=== PATIENT | female | born 1960 | race Caucasian/White ===

== ENCOUNTER 2019-06-12 01:52 | Day surgery (SDC) | payer OTHER, SELFPAY ==
[2019-06-08 10:10] VITALS: BMI 27.3
--- NOTE | 2019-06-10 09:13 | PM.IMHP ---
H&P: HPI History of Present Illness Chief complaint: Post Mennopausal bleeding, recurring uter juanito,enla Narrative: Luz Pires is a 58 year old female 2 para 2 was admitted for robotic total vaginal hysterectomy and bilateral salpingo-oophorectomy. She has a history of uterine polyps. She has had vaginal bleeding. This has been proven to be of a benign nature. In light of her continued bleeding at her age she asked for hysterectomy. Risks and benefits were reviewed Review of Systems Review of Systems: All systems reviewed & are unremarkable except as noted in HPI and below PMFSH Family History Family History Mother Diabetes mellitus Hypertension Family history of elevated blood lipids Father Depression Hypertension Family history of cardiovascular disease Other Family history of multiple sclerosis Social History Social History Smoking status: Former smoker Smoking end date: 03/04/15 Alcohol intake: current Meds Home Medications and Allergies Home Medications Medication Instructions Recorded Confirmed Type estradiol-norethindrone acet 1 1 tablet PO DAILY #90 tablet 01/21/19 06/08/19 Rx mg-0.5 mg tablet triamterene 37.5 1 tablet PO QAM #90 tablet 02/18/19 06/08/19 Rx mg-hydrochlorothiazide 25 mg tablet baclofen 10 mg tablet 10 mg PO BID tablet 03/27/19 06/08/19 History clonazepam 0.5 mg tablet 0.5 mg PO DAILY PRN 03/27/19 06/08/19 History fingolimod 0.5 mg capsule 0.5 mg PO DAILY 03/27/19 06/08/19 History lisinopril 20 mg tablet 20 mg PO DAILY 03/27/19 06/08/19 History cholecalciferol (vitamin D3) 50 mcg PO DAILY 06/08/19 06/08/19 History [Vitamin D3] Allergies Allergy/AdvReac Type Severity Reaction Status Date / Time telmisartan Allergy Unknown Skin Verified 06/08/19 10:12 Reaction Exam Const: General: no acute distress Eyes: General: appearance normal, both eyes and all related structures Neck: Neck: supple and no JVD Thyroid: thyroid normal Resp: Effort & Inspection: normal respiratory effort Auscultation: clear to auscultation bilaterally Cardio: Rate: regular rate Rhythm: regular rhythm GI: Inspection: non-distended GI Palp: Yes Soft to palpation, No Tenderness to palpation present (GI) and No Guarding due to palpation present (GI) Auscultation: normal bowel sounds : General: Yes bladder normal to palpation External Female Exam: normal external appearance Speculum Exam - Vagina: normal vaginal discharge and No vaginal bleeding Speculum Exam - Cervix: nontender Bimanual exam- vagina & uterus: bladder normal to palpation and No Cervical tenderness present OB/external & speculum: No vaginal bleeding Skin: General skin exam: no rashes or lesions noted Extrem: General: normal to inspection and no edema Psych: Mental Status: mental status grossly normal Affect: normal affect Assessment and Plan Additional Plan impression: Postmenopausal bleeding enlarged uterus and polyps Plan: Robotic total vaginal hysterectomy and bilateral salpingo-oophorectomy
--- NOTE | 2019-06-11 15:54 | P.PNAN_ITS ---
Anes - Initial Pre Proc Eval Procedure: Operation Date: 06/12/19 09:30 Proposed Procedures p Robotic Assisted Total Vaginal Hysterectomy with Bilateral Salpingo- Oophorectomy - Clark Pretty MD Date/Time: 06/11/19 15:54 Surgeon: Clark Pretty MD Pre Op Diagnosis: Post Menopausal bleeding, recurring uter juanito,enla Patient Data Age: 58 Gender: F Height: 1.7 m Weight: 79.38 kg Allergies Allergy/AdvReac Type Severity Reaction Status Date / Time telmisartan Allergy Unknown Skin Verified 06/12/19 08:32 Reaction Home Medications Medication Instructions Recorded Confirmed Type estradiol-norethindrone acet 1 1 tablet PO DAILY #90 tablet 01/21/19 06/12/19 Rx mg-0.5 mg tablet triamterene 37.5 1 tablet PO QAM #90 tablet 02/18/19 06/12/19 Rx mg-hydrochlorothiazide 25 mg tablet baclofen 10 mg tablet 10 mg PO BID tablet 03/27/19 06/12/19 History clonazepam 0.5 mg tablet 0.5 mg PO DAILY PRN 03/27/19 06/12/19 History fingolimod 0.5 mg capsule 0.5 mg PO DAILY 03/27/19 06/12/19 History cholecalciferol (vitamin D3) 50 mcg PO DAILY 06/08/19 06/12/19 History [Vitamin D3] hydrocodone-acetaminophen [[place]] 1 tablet PO Q4H PRN #30 tablet 06/12/19 Rx amlodipine 5 mg tablet 5 mg PO DAILY #90 tablet 06/18/19 Rx Patient hx anesthesia problems: none Family hx anesthesia problems: none PMFSH Past Medical History Medical History (Updated 06/11/19 @ 15:55 by Jaylen Garcia MD) Back pain Dupuytren's fibromatosis Essential (primary) hypertension Multiple sclerosis Scoliosis Surgical History Surgical History (Updated 06/18/19 @ 08:58 by Radha Ramirez CMA) History of hysterectomy (06/12/19) Family History Family History Mother Diabetes mellitus Hypertension Family history of elevated blood lipids Father Depression Hypertension Family history of cardiovascular disease Other Family history of multiple sclerosis Social History Social History Smoking status: Former smoker Smoking end date: 03/04/15 Alcohol intake: current Anes - Eval Final PreProcedure Day of Procedure 06/11/19 15:54 Patient weight: overweight Heart: regular rate and rhythm Lungs: clear to auscultation and normal air movement Airway: Mallampati scale class II Neurological: alert and oriented Last oral intake: >/= 8 hours ASA classification: III Emergent: no Anesthetic plan: proceed Anesthesia type and monitoring: general ETT Informed Consent: The patient's anesthetic plan and its attendant risks and benefits were discussed with the patient/family/POA. Questions were solicited and answers provided to the satisfaction of the patient/family/POA.
[2019-06-12] VITALS (13 sets, daily range): BP systolic 118–142; BP diastolic 54–77; PULSE 53–71; RESP 12–18; TEMP 36.4–37.6; O2SAT 94–100
--- NOTE | 2019-06-12 06:44 | WPDHPUPDATE1 ---
History and Physical Update Update Date/Time: 06/12/19 06:44 History and Physical has been reviewed, including an updated exam of the patient. There are NO changes in the patient's condition. Risks, benefits, and alternatives have been discussed and questions answered. Patient agrees to proceed with procedure.
[2019-06-12 08:29] LABS: Basophils Percent Auto 0.3 % (0.2-1.2); Eosinophils Absolute Auto 0.1 K/mm3 (0-0.3); Eosinophils Percent Auto 2.1 % (0-4.4); Hematocrit 40.3 % (37.0-47.0); Hemoglobin 13.5 g/dL (12.0-15.0); Immature Granulocyte Absolute 0.01 K/mm3 (0.00-0.031); Immature Granulocyte Percent A 0.3 % (0-0.5); Lymphocytes Absolute Auto 0.31 K/mm3 (0.9-3.2); Lymphocytes Percent Auto 8.2 % (18.3-44.2); Mean Corpuscular HGB Conc 33.5 g/dl (32-36); Mean Corpuscular Hemoglobin 31.3 pg (26-34); Mean Corpuscular Volume 93.3 fl (80-100); Mean Platelet Volume 10.1 fl (7.4-10.4); Monocytes Absolute Auto 0.4 K/mm3 (0.1-0.6); Monocytes Percent Auto 11.3 % (2.6-8.5); Neutrophils Percent Auto 77.8 % (45.5-73.1); Platelet Count Result 293 k/mm3 (150-375); Red Blood Count 4.32 M/mm3 (4.2-5.4); Red Cell Distribution Width 13.2 % (11.5-14.5); White Blood Count 3.8 K/mm3 (4.5-10.0)
[2019-06-12] MEDS: LACTATED RINGERS 1,000 ML 30 ML IV CONT (08:40)
[2019-06-12] MEDS: ceFAZolin 2 GM/D5W 50 ML 2 GM/50 ML BAG IVPB (09:25)
--- NOTE | 2019-06-12 10:20 | SUR.OPER ---
Ebl=25ml
[2019-06-12] MEDS: KETOROLAC 30 MG/ML VIAL (*BKC) IV PUSH ×2 (10:28→12:53)
--- NOTE | 2019-06-12 10:29 | P.OP_ITS ---
Procedure Note - Detailed Date of procedure: 06/12/19 Pre-op diagnosis: Post Menopausal bleeding, recurring uter juanito,enla Surgeon: Clark Pretty MD Postop diagnosis: Postmenopausal bleeding/recurring uterine polyps Procedure: Robotic total vaginal hysterectomy and bilateral salpingo- oophorectomy EBL: 25cc Findings: Mildly enlarged uterus normal-appearing ovaries and tubes Complications: None Description of procedure: The patient was prepped and draped in the normal sterile fashion and placed in the dorsal lithotomy position. Under excellent general endotracheal anesthesia weighted speculum was placed in the posterior fornix of vagina. Anterior lip of the cervix grasped with a single-tooth te naculum. Uterus sounded to 9cm. Serial dilatation with fragmented dilators performed followed by passage of the 8. TIFFANY and the 3. And half cold cup. Next a 16 [place] catheter was placed in the bladder. The remaining instruments were removed. The gloves were changed. A supraumbilical incision was made and the Veress needle passed in the abdomen. Abdomen filled with CO2 gas [id number]. The 8mm trocar advanced in the abdomen. Downside visualized. No injury seen. The patient was placed in Trendelenburg and right and left lateral quadrant incisions made. The 8mm trocars were advanced under direct visualization assuring no injury. A right upper quadrant incision made and the 10mm trocar advanced into the abdomen under direct visualization again ensuring injury. The robot was docked. The left round ligament was grasped, burned, cut and brought across the above the bladder which was reflected caudally to the opposite round ligament which was clamped, burned, cut. Adhesions were noted from the colon to the lateral sidewall and these were sharply dissected being careful to avoid injury to vital structures. The left infundibulopelvic structure was skeletonized to remove the left ovary and tube. This was clamped, cut, burned and brought to the level of the cut round ligament. In like fashion the right infundibulopelvic structure was skeletonized, clamped, burned, cut and brought to the level of the previously cut round ligament. The left in cardinal and broad ligaments were serially skeletonized clamped, burned, cut and brought down the lateral edge of the uterus and cervix until the uterine vessels could be seen these were individually clamped, burned, cut. In like fashion the cardinal and broad ligaments on the right were serially skeletonized. These were clamped, burned, cut and brought down to the level of the uterine vessels on the right these were individually clamped, burned, cut. At that point excellent blanching of the uterus was seen colpotomy incision was then made. The uterus cervix ovaries and tubes removed through the vagina. The vagina was then closed with continuous running 0V lock from lateral edge to lateral edge and back to the midline. Irrigation undertaken until clear. Blood loss estimated 25cc. All areas appeared hemostatic. The robot was undocked. The gas removed from the abdomen. The trocars removed from the abdomen. The incisions were closed with 4 O Monocryl and glue. The patient was awakened. She went to recovery in satisfactory condition. All sponge, needle, instrument counts were correct. There were no immediate complications
--- NOTE | 2019-06-12 11:22 | SUR.PHASEI ---
1122 - family updated on pt's status
--- NOTE | 2019-06-12 12:42 | PC.NURSE ---
1155-This patient, Luz Pires, was admitted to OB 2nd Floor Room 284-00. Patient/family oriented to hospital policies and general routines including ID bracelet, bed and alarms, visiting hours, pain management, procedures, bathroom and other care routines, personal items, smoking policy, room service/diet, and visiting hours. Valuables list has been completed. Information on how to activate the Rapid Response Team has been discussed. Patient/Family are encouraged to report perceived risks to care and to ask questions if they do not understand what they are told or what they should do.
[2019-06-12] MEDS: DEXTROSE 5%/LACTATED RINGERS 1,000 ML 125 ML IV CONT ×2 (12:51→20:03)
[2019-06-12] MEDS: FUROSEMIDE INJ 40 MG/4 ML VIAL 10 MG IV PUSH (16:19)
[2019-06-12] MEDS: IBUPROFEN 600 MG TABLET PO (19:20)
[2019-06-13 00:15] VITALS: BP 102/54; PULSE 57; RESP 12; TEMP 36.6
[2019-06-13] MEDS: IBUPROFEN 600 MG TABLET PO (04:58)
[2019-06-13 05:30] VITALS: BP 103/57; PULSE 59; RESP 12; TEMP 36.6
[2019-06-13 05:55] LABS: Eosinophils Percent Auto 0.1 % (0-4.4); Hematocrit 35.3 % (37.0-47.0); Hemoglobin 11.8 g/dL (12.0-15.0); Immature Granulocyte Absolute 0.05 K/mm3 (0.00-0.031); Immature Granulocyte Percent A 0.4 % (0-0.5); Lymphocytes Absolute Auto 0.22 K/mm3 (0.9-3.2); Lymphocytes Percent Auto 1.9 % (18.3-44.2); Mean Corpuscular HGB Conc 33.4 g/dl (32-36); Mean Corpuscular Hemoglobin 31.1 pg (26-34); Mean Corpuscular Volume 92.9 fl (80-100); Mean Platelet Volume 10.4 fl (7.4-10.4); Monocytes Absolute Auto 0.7 K/mm3 (0.1-0.6); Monocytes Percent Auto 5.9 % (2.6-8.5); Neutrophils Absolute Auto 10.6 K/mm3 (1.3-6.7); Neutrophils Percent Auto 91.7 % (45.5-73.1); Platelet Count Result 276 k/mm3 (150-375); Red Cell Distribution Width 13.1 % (11.5-14.5); White Blood Count 11.6 K/mm3 (4.5-10.0)
[2019-06-13 06:45] VITALS: BP 127/71; PULSE 72; RESP 18; TEMP 36.2
[2019-06-13] MEDS: ENOXAPARIN 40 MG/0.4 ML SYRINGE SUB-Q (08:53)
[2019-06-13] MEDS: DOCUSATE SODIUM 100 MG CAPSULE PO (08:53)
--- NOTE | 2019-06-13 08:59 | PM.GYNPNOP ---
PROCESS LEAD - A/P Postoperative Procedures: Procedures Operation Date: 06/12/19 09:30 Actual Procedures Side Surgeon p Robotic Assisted Total Vaginal Hysterectomy with Bilateral Salpingo-Oophorectomy Bilateral Clark Pretty MD A: POD#1, doing well. P: Home to f/u 2 weeks. Time Spent With Patient Time with patient: less than 15 minutes PROCESS LEAD- PN:Subj Post-Op Subjective Date/time seen: 06/13/19 08:59 Interval history: Pain OK. Tolerating diet. Voiding. Would like to go home. Exam Narrative: Exam Narrative: AVSS I/O OK ABD soft, nontender. Incisions c/d/i. EXT nontender PROCESS LEAD - PN: Obj Data Vital Signs Vital Signs: Vital Signs - 24 hr 06/12/19 10:45 06/12/19 11:00 06/12/19 11:15 Temperature 36.4 C Pulse Rate 66 60 60 Respiratory Rate 14 14 15 Blood Pressure 121/64 125/74 125/68 Pulse Oximetry 98 100 96 06/12/19 11:30 06/12/19 11:45 06/12/19 12:00 Temperature 36.5 C Pulse Rate 55 L 56 L 53 L Respiratory Rate 12 12 16 Blood Pressure 125/63 118/56 L 134/64 Pulse Oximetry 94 95 100 06/12/19 12:15 06/12/19 12:30 06/12/19 13:00 Temperature Pulse Rate 55 L 60 60 Respiratory Rate 16 16 16 Blood Pressure 137/70 134/66 138/54 L Pulse Oximetry 95 99 100 06/12/19 13:30 06/12/19 14:00 06/12/19 15:00 Temperature 37.6 C Pulse Rate 64 65 70 Respiratory Rate 18 16 16 Blood Pressure 122/58 L 134/66 128/60 Pulse Oximetry 98 98 100 06/12/19 19:43 06/13/19 00:15 06/13/19 05:30 Temperature 36.7 C 36.6 C 36.6 C Pulse Rate 71 57 L 59 L Respiratory Rate 12 12 12 Blood Pressure 142/77 H 102/54 L 103/57 L Pulse Oximetry 06/13/19 06:45 Temperature 36.2 C L Pulse Rate 72 Respiratory Rate 18 Blood Pressure 127/71 Pulse Oximetry Intake/Output Intake/Output: Intake & Output 06/10/19 06/11/19 06/12/19 04/11/20 23:59 23:59 23:59 23:59 Intake Total 2666 1600 Output Total 535 1525 Balance 2131 75 Meds/Results Medications: Active Medications Generic Name Dose Route Start Last Admin Trade Name Freq PRN Reason Stop Dose Admin Hydrocodone Bitart/Acetaminophen 1 tab 06/12/19 11:47 06/12/19 19:19 [place] 5-325 Mg PO 1 tab Q3H PRN Administration Pain Rated 5 or Less Hydrocodone Bitart/Acetaminophen 1 tab 06/12/19 11:47 06/13/19 04:57 [place] 10-325 Mg PO 1 tab Q3H PRN Administration Pain Rated 6 or Greater Docusate Sodium 100 mg 06/12/19 17:00 06/13/19 08:53 Colace Capsule PO 100 mg BID MAMI Administration Enoxaparin Sodium 40 mg 06/13/19 09:00 06/13/19 08:53 Lovenox SUB-Q 40 mg DAILY MAMI Administration Dextrose/Lactated Ringer's 1,000 mls @ 125 mls/hr 06/12/19 11:47 06/12/19 20:17 Dextrose 5%/Lactated Ringers IV CONT 125 mls/hr .Q8H MAMI Infusion Ibuprofen 600 mg 06/12/19 11:47 06/13/19 04:58 Motrin PO 600 mg Q6H PRN Administration Cramping Ketorolac Tromethamine 30 mg 06/12/19 11:47 06/12/19 12:53 Toradol Inj IV PUSH 06/17/19 11:48 30 mg Q6H PRN Administration Pain Rated 4-6 Morphine Sulfate 4 mg 06/12/19 11:47 Morphine Sulfate Inj IV PUSH Q4H PRN Severe breakthrough pain Naloxone HCl 0.1 mg 06/12/19 11:47 Narcan IV PUSH Q2M PRN Respiratory rate less than 10 Ondansetron HCl 4 mg 06/12/19 11:47 Zofran Inj IV PUSH Q6H PRN Nausea And Vomiting Simethicone 80 mg 06/12/19 11:47 Mylicon PO Q2H PRN Gas Labs CBC & Chem 7: 06/13/19 04:39 Labs: Laboratory Results - last 24 hr 06/12/19 06/13/19 08:05 04:39 WBC 11.6 H RBC 3.80 L Hgb 11.8 L Hct 35.3 L MCV 92.9 MCH 31.1 MCHC 33.4 RDW 13.1 Plt Count 276 MPV 10.4 Immature Gran % (Auto) 0.4 Neut % (Auto) 91.7 H Lymph % (Auto) 1.9 L [place] % (Auto) 5.9 Eos % (Auto) 0.1 Baso % (Auto) 0.0 L Lymph # (Auto) 0.22 L [place] # (Auto) 0.7 H Eos # (Auto) 0.0 Baso # (Auto) 0.0 Abs Immat Gran (auto) 0.05
--- NOTE | 2019-06-13 09:00 | PM.DS ---
DS: Diagnosis Discharge Diagnosis (1) Vaginal bleeding: Code(s): N93.9 - Abnormal uterine and vaginal bleeding, unspecified Status: Acute (2) Cervical polyp: Code(s): N84.1 - Polyp of cervix uteri Status: Acute DS: Summary Time Spent with Patient Time attestation: Total time spent providing and/or coordinating discharge services: DS: Data Data Completed and Pending Pending studies at discharge: Pending at discharge 06/12/19 10:17 Surgical [PTH] Routine Labs on day of discharge: Labs from last 24 hours 06/13/19 06/12/19 04:39 08:05 WBC 11.6 H RBC 3.80 L Hgb 11.8 L Hct 35.3 L MCV 92.9 MCH 31.1 MCHC 33.4 RDW 13.1 Plt Count 276 MPV 10.4 Immature Gran % (Auto) 0.4 Neut % (Auto) 91.7 H Lymph % (Auto) 1.9 L [place] % (Auto) 5.9 Eos % (Auto) 0.1 Baso % (Auto) 0.0 L Lymph # (Auto) 0.22 L [place] # (Auto) 0.7 H Eos # (Auto) 0.0 Baso # (Auto) 0.0 Abs Immat Gran (auto) 0.05 H Absolute Neuts (auto) 10.6 H Absolute Nucleated RBC 0.0 Nucleated RBC % 0.0 Blood Type O Positive Antibody Screen Negative Discharge Plan Discharge Patient Disposition: Home, Self-Care Discharge Instructions: Call or return if temperature above 100.4? F, increased abdominal pain, increased vaginal bleeding or any new problems. Stand Alone Forms: General Discharge Instructions Follow-up/Referrals: Clark Pretty MD [Physician] - Discharge Medications: New hydrocodone-acetaminophen [[place]] 5-325 mg tablet 1 tablet PO Q4H PRN (Reason: pain) Qty: 30 RF: 0 No Action lisinopril 20 mg tablet 20 mg PO DAILY RF: 0 [place] 0.5 mg capsule 0.5 mg PO DAILY RF: 0 clonazepam 0.5 mg tablet 0.5 mg PO DAILY PRN (Reason: Anxiety) RF: 0 baclofen 10 mg tablet 10 mg PO BID RF: 0 cholecalciferol (vitamin D3) [Vitamin D3] 50 mcg (2,000 unit) Capsule 50 mcg PO DAILY RF: 0 estradiol-norethindrone acet [[place]] 1-0.5 mg tablet 1 tablet PO DAILY Qty: 90 RF: 3 triamterene-hydrochlorothiazid 37.5-25 mg tablet 1 tablet PO QAM Qty: 90 RF: 1 Primary Care Provider: Russel Alves Attending physician on admission: Clark Pretty
== END 2019-06-13 10:46 | disposition home or self-care (01) ==
LOC: ANHSURGERY 08:08 → ANHOB2 11:49
PROVIDERS: PCP Family Medicine; Visit Provider Obstetrics & Gynecology
PROC: (CPT 58552; principal; 2019-06-12 09:30)
DX: N95.0 Postmenopausal bleeding (principal); N84.0 Polyp of corpus uteri; N80.0 Endometriosis of uterus; N73.6 Female pelvic peritoneal adhesions (postinfective); I10 Essential (primary) hypertension; G35 Multiple sclerosis; Z87.891 Personal history of nicotine dependence
CPT/HCPCS: 58552; S2900; 36415; 85025; 86850; 86900; 86901; 88307; 99199; A9270; J0690; J1650; J1885; J1940; J2250; J3010; J7120; J7121

== ENCOUNTER 2020-11-30 14:47 | Outpatient (CLI) | payer OTHER, SELFPAY ==
--- NOTE | ~2020-11-30 | MM_ITS ---
EXAMINATION: MM screening hernán BI w vinay HISTORY: Screening TECHNIQUE: Craniocaudal and mediolateral oblique 3-D tomosynthesis images were obtained and synthetic 2-D images were generated. CAD analysis was submitted and interpreted. COMPARISON: No prior mammogram is available for comparison at this institution. BREAST PARENCHYMAL COMPOSITION: The breasts are heterogeneously dense, which may obscure small masses . FINDINGS: There is focal asymmetry in the upper outer quadrant of the right breast, middle third. The re are no suspicious masses, calcifications or architectural distortion in the left breast to suggest malignancy. IMPRESSION: 1. Focal right breast asymmetry. 2. Additional mammographic views and possible breast ultrasound are recommended. BI-RADS Category 0: Incomplete: Needs additional imaging evaluation. Reviewed, dictated and finalized at location A. IMPRESSION: 1. Focal right breast asymmetry. 2. Additional mammographic views and possible breast ultrasound are recommended . BI-RADS Category 0: Incomplete: Needs additional imaging evaluation.
--- NOTE | ~2020-11-30 | DEXA_ITS ---
Bone Density Report Name: Luz Pires Age: 59 Sex: Female Ethnicity: White Date of : 1960 Indication: postmenopausal; height loss; hysterectomy; Referring Provider: ANOOP DOOLEY Study: Bone densitometry was performed. Exam Date: November 30, 2020 Accession number: [id number] Bone Density: Region BMD T-score Z-score Classification AP Spine (L1-L4) 1.000 -0.4 1.0 Normal Femoral Neck (Left) 0.871 0.2 1.5 Normal Total Hip (Left) 0.958 0.1 1.1 Normal Total Hip Bilateral Avg 0.927 -0.2 0.9 Normal Femoral Neck (Right) 0.808 -0.4 0.9 Normal Total Hip (Right) 0.895 -0.4 0.6 Normal World Health Organization criteria for BMD impression classify patients as: Normal (T-score at or above -1.0), Osteopenia (T-score between -1.0 and -2.5), or Osteoporosis (T-score at or below -2.5). 10-year Fracture Risk: FRAX not reported because: All T-scores for Spine Total, Hip Total, Femoral Neck at or above -1.0 Clinical Information Provided by Patient: Has used the following medications: Vitamin D Has the following medical conditions: Hysterectomy Patient maximum height was 67 Menopause Age: 53 No regular weight bearing exercise Drinks caffeinated beverages Onset of menses at age 15 Number of children 2 Impression: The patient has normal bone mass. Discussion: BONE DENSITY IS ABOVE THE MINIMUM DESIRABLE LEVEL AT ALL SKELETAL SITES TESTED. This patient?s bone mineral density is above the minimum desirable level (T-score -1.0 or better) at all sites measured. The patient should follow a healthful lifestyle (good nutrition with adequate calcium and vitamin D, and appropriate weight-bearing exercise). Follow-Up: Consider repeating this study in 5 years or sooner if there is some new clinical indication. Reported by: DALE on 11/30/2020 3:28:00 PM. Reviewed, dictated and finalized at location [facility] OBANDO
== END 2020-11-30 14:48 | disposition home or self-care (01) ==
LOC: ANHIMG 14:50
PROVIDERS: PCP Family Medicine; Visit Provider Family Medicine
DX: Z12.31 Encounter for screening mammogram for malignant neoplasm of breast (principal); M85.89 Other specified disorders of bone density and structure, multiple sites; G35 Multiple sclerosis; R92.8 Other abnormal and inconclusive findings on diagnostic imaging of breast
CPT/HCPCS: 77063; 77067; 77080

== ENCOUNTER 2020-12-23 12:07 | Outpatient (CLI) | payer OTHER, SELFPAY ==
--- NOTE | ~2020-12-23 | MMUS_ITS ---
EXAMINATION: MM diagnostic hernán RT w vinay, US breast RT complete HISTORY: Focal right breast mammographic asymmetry reported on 11/30/2020 screening mammogram TECHNIQUE: Additional 3-D tomosynthesis images of the right breast were performed and synthetic 2-D i mages were generated. CAD analysis was submitted and interpreted. High resolution complete right maria ines st ultrasound including all 4 quadrants and subareolar area was performed. COMPARISON: bilateral digital screening mammogram FINDINGS: MAMMOGRAPHIC FINDINGS: In approximately 5 mm mass is suggested in the anterior outer mid left breast. ULTRASOUND: 5 mm sonolucency with through transmission posterior enhancement is identified in o'clock 2 cm from t he nipple. Approximately 5.5 x 9 mm cyst is identified at 6:00 2 cm from the nipple. No suspicious mass or shadowing is evident. IMPRESSION: 1. Probable benign findings 2. 6 month diagnostic mammogram and right breast ultrasound follow-up are recommended BI-RADS category 3, probably benign findings. Reviewed, dictated and finalized at location A. IMPRESSION: 1. Probable benign findings 2. 6 month diagnostic mammogram and right breast ultrasound follow-up are recom mended BI-RADS category 3, probably benign findings.
== END 2020-12-23 12:08 | disposition home or self-care (01) ==
LOC: ANHIMG 12:07
PROVIDERS: PCP Family Medicine; Visit Provider Family Medicine
DX: R92.8 Other abnormal and inconclusive findings on diagnostic imaging of breast (principal)
CPT/HCPCS: 76641; 77061; 77065; G0279

== ENCOUNTER 2021-10-16 14:55 | Outpatient (RCR) | payer OTHER, SELFPAY ==
--- NOTE | 2021-10-16 18:20 | PTOPEVAL ---
Thank you for referring Luz Pires to [facility].? The patient is scheduled to be seen for therapy? 2x/week for 8 visits. Please review, sign, date and return this plan of care BRITTANI. I agree with and certify that the following plan of care is medically necessary. Referring Physician Date Admitting Provider: Attending Provider: Russel Alves MD Referring Provider: *PT Outpatient Evaluation Start: 10/16/21 15:16 Freq: Status: Active Protocol: Document 10/16/21 15:16 [facility] (Rec: 10/16/21 16:13 [id number]) Therapy Assessment Status Assessment Status Assessment Status Evaluation Outpatient Past Medical History Neurological History Hx Multiple Sclerosis Yes Cardiovascular History Hx Hypertension Yes Respiratory History Hx Sleep Apnea Yes: RESOLVED Gastrointestinal History Hx Polyps Yes Genitourinary History Hx Genitourinary Disorders No Significant History Musculoskeletal History Hx Back Pain Yes Hx Orthopedic Surgery Yes: RT HAMMER TOE CORRECTION Hx Scoliosis Yes Hematological History Hx Hematological Disorders No Significant History Endocrine History Hx Endocrine Disorders No Significant History HEENT History Hx Dental Problems Yes Hx Ear Surgery Yes: OTOPLASTY Integumentary History Hx Skin Disorders No Significant History Reproductive History Hx Post Menopausal Yes Hx Tubal Ligation Yes Hx Other Reproductive Disorders Yes: RECURRENT UTERINE POLYPS Psychosocial History Hx Anxiety Yes Pain History Has Past Pain Affected Your Daily Life Yes: GENERALIZED Effective Methods of Pain Control MEDICAL MARIJUANA NEEDED Anesthesia History Hx Anesthesia Reactions No Significant History Evaluation Information Problem Diagnosis Dorsalgia Onset 10/07/21 Subjective Information Has had low back pain in the Query Text:As Reported By Patient/ past, knows it is very much Family due to decreased core strength . Has MS, diagnosed in 2013. Noticed back pain before diagnosis, hurt it when in the . Has been working from home. Also has knee pain that has been worsening, shoulder pain with frozen shoulder, and elbow pain and she is wanting physical therapy for her shoulder and elbow as well. Insidious onset of building pain i
== END 2021-10-30 15:40 | disposition home or self-care (01) ==
LOC: CHSPT 14:55
PROVIDERS: PCP Family Medicine; Visit Provider Family Medicine
DX: M54.9 Dorsalgia, unspecified (principal)
CPT/HCPCS: 97110; 97140; 97161

== ENCOUNTER 2022-01-31 01:00 | Day surgery (SDC) | payer OTHER, SELFPAY ==
[2022-01-16 09:09] VITALS: BMI 28.3
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
[2022-01-31 07:11] VITALS: BP 135/94; PULSE 95; RESP 16; TEMP 36.2; O2SAT 98
[2022-01-31] MEDS: LACTATED RINGERS 1,000 ML 150 ML IV CONT (07:16)
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
[2022-01-31] MEDS: SIMETHICONE ORAL SUSPENSION 20 MG/0.3 ML 30 ML BOTTLE 0.6 ML IRRIGATION (08:52)
[2022-01-31 09:02] VITALS: BP 120/67; PULSE 65; RESP 19; O2SAT 97
[2022-01-31 09:12] VITALS: BP 124/73; PULSE 60; RESP 19; O2SAT 99
[2022-01-31 09:22] VITALS: BP 137/77; PULSE 61; RESP 16; O2SAT 100
== END 2022-01-31 09:27 | disposition home or self-care (01) ==
PROVIDERS: PCP Family Medicine; Visit Provider Internal Medicine Gastroenterology
PROC: 0DJD8ZZ Inspection of Lower Intestinal Tract, Via Natural or Artificial Opening Endoscopic (ICD-10-PCS; CPT 45378; principal; 2022-01-31 08:30)
DX: Z12.11 Encounter for screening for malignant neoplasm of colon (principal); K64.8 Other hemorrhoids; K57.30 Diverticulosis of large intestine without perforation or abscess without bleeding; K63.5 Polyp of colon; I10 Essential (primary) hypertension; G35 Multiple sclerosis; Z87.891 Personal history of nicotine dependence
CPT/HCPCS: 45385; 88305; J2704; J7120

== ENCOUNTER 2022-02-19 11:39 | Outpatient (CLI) | payer OTHER, SELFPAY ==
--- NOTE | ~2022-02-19 | MM_ITS ---
EXAMINATION: MM screening hernán BI w vinay HISTORY: Screening TECHNIQUE: Craniocaudal and mediolateral oblique 3-D tomosynthesis images were obtained and synthetic 2-D images were generated. CAD analysis was submitted and interpreted. COMPARISON: Comparison to multiple prior studies sequentially, with oldest reviewed study dated 11/30. BREAST PARENCHYMAL COMPOSITION: The breasts are heterogeneously dense, which may obscure small masses FINDINGS: The right breast is stable without evidence for malignancy. There is a new mass in the lowe r outer quadrant of the left breast, best seen on MLO tomographic image . IMPRESSION: 1. New left breast mass, lower outer quadrant. 2. Additional mammographic views and possible breast ultrasound are recommended. BI-RADS Category 0: Incomplete: Needs additional imaging evaluation. Reviewed, dictated and finalized at location A. ISH TRANSLATOR IMPRESSION: 1. New left breast mass, lower outer quadrant. 2. Additional mammographic views and possible breast ultrasound are recommended . BI-RADS Category 0: Incomplete: Needs additional imaging evaluation.
== END 2022-02-19 11:40 | disposition home or self-care (01) ==
LOC: ANHIMG 11:40
PROVIDERS: PCP Family Medicine; Visit Provider Family Medicine
DX: Z12.31 Encounter for screening mammogram for malignant neoplasm of breast (principal); R92.8 Other abnormal and inconclusive findings on diagnostic imaging of breast
CPT/HCPCS: 77063; 77067

== ENCOUNTER 2022-03-15 12:45 | Outpatient (CLI) | payer OTHER, SELFPAY ==
--- NOTE | ~2022-03-15 | MMUS_ITS ---
EXAMINATION: MM diagnostic hernán LT w vinay, US breast LT complete HISTORY: Follow-up left breast asymmetry TECHNIQUE: Additional 3-D tomosynthesis images of the left breast were performed and synthetic 2-D im ages were generated. CAD analysis was submitted and interpreted. High resolution complete left breast ultrasound was performed. COMPARISON: Comparison to multiple prior studies sequentially, with oldest reviewed study dated 11/30. BREAST PARENCHYMAL COMPOSITION: Breast composed of scattered areas of fibroglandular density FINDINGS: MAMMOGRAPHIC FINDINGS: There are no suspicious masses, calcifications or architectural distortion in the left breast to sugg est malignancy. ULTRASOUND: Complete US of all 4 quadrants of the left breast and retroareolar region was reviewed. At 4:00, 2 cm from the nipple there is a cluster of cysts measuring up to 1.4 cm in aggregate. At 11:00 near the n ipple there is mildly prominent duct. No suspicious masses to suggest malignancy. IMPRESSION: 1. No evidence for malignancy in the left breast. Benign findings. 2. Routine yearly screening mammogram and regular clinical breast examination are recommended. BI-RADS Category 2: Benign finding(s). Reviewed, dictated and finalized at location A. HOLOGY ASSISTANT IMPRESSION: 1. No evidence for malignancy in the left breast. Benign findings. 2. Routine yearly screening mammogram and regular clinical breast examination a re recommended. BI-RADS Category 2: Benign finding(s).
== END 2022-03-15 12:46 | disposition home or self-care (01) ==
PROVIDERS: PCP Family Medicine; Visit Provider Physician Assistant
DX: R92.8 Other abnormal and inconclusive findings on diagnostic imaging of breast (principal)
CPT/HCPCS: 76641; 77061; 77065; G0279

== ENCOUNTER → 2022-09-22 10:25 | Outpatient (CLI) | payer OTHER, SELFPAY ==
--- NOTE | ~2022-09-22 | MR_ITS ---
EXAMINATION: MR shoulder LT wo con DATE: 09/22/2022 11:25 INDICATION: generalized left shoulder pain down arm ltd rom x5mos, . TECHNIQUE: Magnetic resonance imaging (MRI) of the left shoulder was performed without intravenous co ntrast. Sequences included axial PD-weighted FS FSE, coronal oblique PD-weighted FS FSE and T2-weight ed FS FSE, and sagittal oblique T2-weighted FS FSE and T1-weighted FSE. COMPARISON: None. FINDINGS: Coracoacromial arch: Mild anterior downsloping of the type II acromion. Mild acromial tip enthesopathy. 4 mm subacromial s pace. Mild subacromial subdeltoid fluid. No subcoracoid narrowing. Mild AC joint hypertrophy. Rotator cuff: No focal defect. Distal cuff thinning superiorly, with mild intermediate signal abnormality. Elongate d cystic collection adjacent to the infraspinatus muscle. Mild supraspinatus and infraspinatus atroph y. Partial subscapularis tear. Teres minor intact. Biceps tendon and glenoid labrum: Mild medial subluxation of the biceps tendon. Glenohumeral joint space narrowing. Mild degenerative c hanges in the glenoid labrum without focal tear Fluid: No significant fluid collection except as noted above. Bones/cartilage: Benign, homogenous marrow signal. Glenohumeral cartilage thinning. IMPRESSION: Mild outlet compromise, with subchondral subdeltoid bursitis. Chronic changes in the superior cuff, including tendinopathy, without focal tear in either the supras pinatus or infraspinatus. Likely ganglion cyst adjacent to the infraspinatus muscle belly. Partial subscapular tear with mild biceps tendon subluxation. Mild AC joint and glenohumeral joint osteoarthritis. Reviewed, dictated and finalized at location K. IMPRESSION: Mild outlet compromise, with subchondral subdeltoid bursitis. Chronic changes in the superior cuff, including tendinopathy, without focal tea r in either the supraspinatus or infraspinatus. Likely ganglion cyst adjacent to the infraspinatus muscle belly. Partial subscapular tear with mild biceps tendon subluxation. Mild AC joint and glenohumeral joint osteoarthritis.
== END ==
PROVIDERS: PCP Family Medicine; Visit Provider Nurse Practitioner Family
DX: M19.012 Primary osteoarthritis, left shoulder (principal)
CPT/HCPCS: 73221

== ENCOUNTER 2022-10-02 14:44 | Outpatient (RCR) | payer OTHER, SELFPAY ==
--- NOTE | 2022-10-02 16:17 | OPREHPOC ---
Outpatient Therapy Plan of Care This is a Multidisciplinary Plan of Care that may contain components documented by all disciplines (PT, OT, and ST.) PT Problem 1 PT Problem #1 Knowledge Deficit PT Goal 1 Goal Patient to demonstrate independence with HEP Target Visit 6 PT Problem 2 PT Problem #2 Pain PT Goal 1 Goal 1. Patient to report highest pain at 2/10 2. Patient to report no sleep disturbance due to pain Target Visit 12 PT Problem 3 PT Problem #3 Impaired Range of Motion PT Goal 1 Goal Patient to demonstrate 160 deg of L shoulder flexion to improve ability to reach into cabinets at PLOF Target Visit 12 PT Problem 4 PT Problem #4 Impaired Strength PT Goal 1 Goal Patient to demonstrate L shoulder strength to 4+/5 to improve ability to complete house hold tasks Target Visit 12 PT Problem 5 PT Problem #5 Impaired Functional Mobil PT Goal 1 Goal Patient to report ability to dress and bathe with no increase in L shoulder pain Target Visit 12
--- NOTE | 2022-10-02 16:17 | PTOPEVAL1 ---
Assessment and note entered by Aarti Mcnair DPT Evaluation Information Assessment Status Evaluation Diagnosis L shoulder pain Onset 09/28/22 Subjective Information Patient reported in May she was having L shoulder pain. She did exercises that she had previously done for R frozen shoulder with no improvements. She reports since onset pain has continued to increase. Patient reports difficulty with dressing, lifting over her head, and performing heavy house hold tasks. She reports prior to May she did not have any L shoulder pain. 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 Reported Pain Level Pain Score 2: Self Report Assessment PT Clinical Summary Patient is a 61 year old female who presents to PT with L shoulder pain. Patient presents decrease active and passive L shoulder ROM, decreased L shoulder strength and increased pain impairing her ability to dress, bathe, and complete house hold chores. Patient would benefit from skilled PT to address impairments and return to PLOF. Plan of Care Interventions Electrical Stimulation,Hot Pack/Cold Pack,Manual Therapy,Neuro Re-education,Patient/Caregiver Educati,Therapeutic Activities,Therapeutic Exercise PT Services Indicated Yes Treatment Frequency and 2x weekly for 12 visits Duration These treatments will address the objective and functional deficits as defined above. The patient will be advanced safely and appropriately in order for the patient to progress towards his/her prior level of function. Additional exercises will be introduced and as well as a comprehensive home exercise program upon discharge, if needed, ?to ensure carryover of functional gains achieved in the clinic. This treatment plan has been reviewed and agreement upon by the patient.
--- NOTE | 2022-11-02 10:41 | OPREHPOC ---
Outpatient Therapy Plan of Care This is a Multidisciplinary Plan of Care that may contain components documented by all disciplines (PT, OT, and ST.) PT Problem 1 PT Problem #1 Knowledge Deficit PT Goal 1 Goal Patient to demonstrate independence with HEP Target Visit 6 Progress Met Comment continue to progress exercises PT Problem 2 PT Problem #2 Pain PT Goal 1 Goal 1. Patient to report highest pain at 2/10 2. Patient to report no sleep disturbance due to pain Target Visit 12 Comment continue to address goals PT Problem 3 PT Problem #3 Impaired Range of Motion PT Goal 1 Goal Patient to demonstrate 160 deg of L shoulder flexion to improve ability to reach into cabinets at PLOF Target Visit 12 Progress Partially Met Comment continue to address PT Problem 4 PT Problem #4 Impaired Strength PT Goal 1 Goal Patient to demonstrate L shoulder strength to 4+/5 to improve ability to complete house hold tasks Target Visit 12 Progress Partially Met Comment continue to address PT Problem 5 PT Problem #5 Impaired Functional Mobil PT Goal 1 Goal Patient to report ability to dress and bathe with no increase in L shoulder pain Target Visit 12 Comment continue to address
--- NOTE | 2022-11-02 10:42 | PTOPPROGNS ---
Assessment and note entered by JT File, PT Evaluation Information Assessment Status Progress Diagnosis L shoulder pain Onset 09/28/22 Subjective Information Patient reports some pain in the L shoulder at the beginning of today's session. She reports less tenderness to the touch along the left lateral shoulder/upper arm, noting that about 85% of the discomfort remains along the insertion of the L deltoid on the upper arm. She notes that she feels her range of motion has improved since starting PT. She states that her doctor recommended she continue PT until she visits the orthopedic surgeon in late November. Assessment PT Clinical Summary Mrs. Pires has attended 10 visits of skilled PT to address L shoulder pain, making good progress towards goals. She demonstrates improved shoulder strength with some motions and increased ROM both actively and passively in all planes. Patient currently has 52.2% functional decline as assessed by the [employer]. She continues to report pain with performing motions like reaching to the back seat of the car. She continues to display limited strength, especially with abduction. Patient would benefit from skilled therapy to address remaining ROM and strength deficits along with pain. Plan of Care Interventions Electrical Stimulation,Hot Pack/Cold Pack,Manual Therapy,Neuro Re-education,Patient/Caregiver Educati,Therapeutic Activities,Therapeutic Exercise PT Services Indicated Yes Treatment Frequency and continue POC for 2x weekly for remaining 2 visits Duration per initial POC These treatments will address the objective and functional deficits as defined above. The patient will be advanced safely and appropriately in order for the patient to progress towards his/her prior level of function. Additional exercises will be introduced and as well as a comprehensive home exercise program upon discharge, if needed, ?to ensure carryover of functional gains achieved in the clinic. This treatment plan has been reviewed and agreement upon by the patient.
--- NOTE | 2022-11-16 08:26 | OPREHPOC ---
Outpatient Therapy Plan of Care This is a Multidisciplinary Plan of Care that may contain components documented by all disciplines (PT, OT, and ST.) PT Problem 1 PT Problem #1 Knowledge Deficit PT Goal 1 Goal Patient to demonstrate independence with HEP Target Visit 6 Progress Met Comment goal met PT Problem 2 PT Problem #2 Pain PT Goal 1 Goal 1. Patient to report highest pain at 2/10 2. Patient to report no sleep disturbance due to pain Target Visit 12 Progress Not Met Comment goals not met PT Problem 3 PT Problem #3 Impaired Range of Motion PT Goal 1 Goal Patient to demonstrate 160 deg of L shoulder flexion to improve ability to reach into cabinets at PLOF Target Visit 12 Progress Partially Met Comment goal met with PROM, not yet with AROM PT Problem 4 PT Problem #4 Impaired Strength PT Goal 1 Goal Patient to demonstrate L shoulder strength to 4+/5 to improve ability to complete house hold tasks Target Visit 12 Progress Partially Met Comment goal met for all motions except abduction PT Problem 5 PT Problem #5 Impaired Functional Mobil PT Goal 1 Goal Patient to report ability to dress and bathe with no increase in L shoulder pain Target Visit 12 Progress Partially Met Comment patient reports somewhat improved ability with these activities
== END 2022-11-09 09:44 | disposition home or self-care (01) ==
LOC: CHSPT 14:44
PROVIDERS: Visit Provider Nurse Practitioner Family
DX: M25.512 Pain in left shoulder (principal)
CPT/HCPCS: 97014; 97110; 97140; 97150; 97161; G0283

== ENCOUNTER 2022-12-29 07:46 | Outpatient (CLI) | payer OTHER, SELFPAY ==
--- NOTE | 2022-12-29 08:14 | ECG_ITS ---
Measurements Intervals [place] Rate: 59 P: 63 PA: 202 QRS: 40 QRSD: 103 T: 58 QT: 406 QTc: 403 Interpretive Statements SINUS BRADYCARDIA CANNOT RULE OUT INFERIOR INFARCT AGE INDETERMINATE BORDERLINE ECG NO PREVIOUS ECG AVAILABLE FOR COMPARISON Electronically Signed On 12-29-2022 14:38:45 CDT by Henrik Ashford M.D.
[2022-12-29 08:26] LABS: Anion Gap 9 mmol/L (8-16); Blood Urea Nitrogen 17 mg/dL (7-17); Calcium 9.5 mg/dL (8.4-10.2); Carbon Dioxide 25 mmol/L (22-30); Chloride 102 mmol/L (98-107); Estimated Glomerular Filt Rate > 60; Glucose 96 mg/dL (65-110); Potassium 3.4 mmol/L (3.4-5.0); Sodium 136 mmol/L (137-145)
== END 2022-12-29 07:47 | disposition home or self-care (01) ==
LOC: ANHLAB 07:48
PROVIDERS: PCP Family Medicine; Visit Provider Anesthesiology
DX: Z01.818 Encounter for other preprocedural examination (principal); R93.1 Abnormal findings on diagnostic imaging of heart and coronary circulation; I10 Essential (primary) hypertension; Z79.899 Other long term (current) drug therapy
CPT/HCPCS: 36415; 80048; 93005

== ENCOUNTER 2023-01-01 01:38 | Day surgery (SDC) | payer OTHER, SELFPAY ==
[2022-12-24 16:34] VITALS: BMI 28.1
--- NOTE | 2022-12-24 17:14 | PC.NURSE ---
Report to the Outpatient Waiting Room, entrance under the green pavilion located off [facility], at 0830 on 01-01-23. Planned Procedure Time: 1030. Time changes happen often and if your time is changed the preop area will call you the afternoon before. - You and your visitor will be asked to self-screen and do not enter if you have any COVID symptoms. - A mask is optional within the hospital at this time. Patients may have clear liquids (water, carbonated beverages, clear teas, apple juice) until 3 hours prior to surgery with a maximum of 20 ounces. 0730 - No food from midnight until time of surgery - Infants may have breast milk until 4 hours before surgery, formula 6 hours prior to surgery. - Children will be allowed to drink immediately following surgery. If applicable, please bring a bottle or sippy cup to assist with drinking. Juice, water, soda, and popsicles are readily available. For infants on formula, please bring formula the day of surgery. Pacifiers are allowed. Take the following medications with a SIP of water the morning of surgery: amlodipine DO NOT STOP ANY OF YOUR OTHER PRESCRIPTION MEDICATIONS PRIOR TO SURGERY ?EXCEPT THE FOLLOWING Medications to discontinue per physician: ibuprofen; vitamins and supplements; Date to take last dose: 12-25-22; 12-29-22 Please no make-up, nail azeri, hairspray, perfume, deodorant, or body powder the day of surgery. No jewelry (including any body piercings) or valuables the day of surgery, leave them at home. Please take a shower or bath the night before, or the morning of, surgery with an antibacterial soap. Wear comfortable, loose fitting clothing. Button-down shirt is best Children are encouraged to wear pajamas. - Jewelry must be removed prior to entering the operating room. Rings and piercings that are not removed may be cut off. - The hospital will not accept responsibility for valuables. - Please leave all valuables, including medications, at home the day of surgery. If you are going home after surgery, a licensed tilt tray driver must drive you home. - NO public transportation without another adult if you receive anesthesia. - We recommend that an adult stay with you for 24 hours following discharge. - We also recommend that you do not drive, make important decision, drink alcoholic beverages, or take any drugs that were not prescribed by your health care provider for at least 24 hours after your discharge time. For Pediatric surgeries, we recommend two adults accompany the child home. Follow any additional instructions given to you from your surgeon. If you or anyone in your household have experienced Covid symptoms in the past week, please notify your surgeon or the nurse liaison at the phone number below for possible testing. Telephone instructions given to Luz Pires and asked if any additional questions and then verbalized understanding. Patient advised to call surgeon office or pre surgery nurse liaison [phone] if any additional questions.
[2023-01-01] VITALS (9 sets, daily range): BP systolic 124–145; BP diastolic 61–89; PULSE 64–76; RESP 14–20; TEMP 36.1–36.6; O2SAT 94–98
[2023-01-01] MEDS: ACETAMINOPHEN 500 MG TABLET 1000 MG PO (09:30)
--- NOTE | 2023-01-01 09:33 | WPDHPUPDATE1 ---
History and Physical Update Update Date/Time: 01/01/23 09:33 History and Physical has been reviewed, including an updated exam of the patient. There are NO changes in the patient's condition. Risks, benefits, and alternatives have been discussed and questions answered. Patient agrees to proceed with procedure.
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
[2023-01-01] MEDS: LACTATED RINGERS 1,000 ML 30 ML IV CONT (10:00)
[2023-01-01] MEDS: KETOROLAC 15 MG/ML VIAL (*BKC) IV PUSH (10:00)
[2023-01-01] MEDS: ceFAZolin 2 GM/D5W 50 ML 2 GM/50 ML BAG IVPB (10:25)
--- NOTE | 2023-01-01 10:37 | WPDANESPNB ---
Anes - Peripheral Nerve Block Date/Time: 01/01/23 10:37 I have discussed with the patient/family/POA the placement of a peripheral nerve block for post-operative pain management, including associated risks, benefits, complications, and side effects. Alternative methods of post-operative analgesia were detailed. Questions were solicited and answers provided to the satisfaction of the patient/family/POA. Time-Out: A pre-procedural Time-Out was completed immediately before starting the procedure and confirmed: Patient Identification, Site, Procedure, Patient Position and the Availability of Requisite Equipment. Clinical Indications: Acute post-operative pain management requested by the operative surgeon. Nerve Block Insertion Note Anes-nerve block: interscalene left Patient position: other (sitting) Skin prep: chlorhexidine Needle: 22 gauge, stimulating, insulated echogenic needle. Needle length: 50 mm Technique: nerve stimulation lost at (mA) and ultrasound Technique comment: mid2mg [id number] Injectate: bupivacaine 0.5% with epi 5 mcg/ml (30ml no epi) and dexamethasone (mg) (4) Observations: tolerated well Complications: none Procedure start time:: 1013 Procedure end time:: 1020
[2023-01-01] MEDS: EPINEPHrine HCL INJ 1 MG/ML AMPUL 3 MG IRRIGATION (11:41)
--- NOTE | 2023-01-01 13:29 | P.OP_ITS ---
Procedure Note - Detailed Date of Procedure 01/01/23 Pre-op Diagnosis Partial Lt Rot Cuff Tear Post-op Diagnosis Other (1. Partial rotator cuff tear 2. Subacromial impingement ) Procedure Performed Left shoulder 1. Arthroscopic rotator cuff repair 2. Arthroscopic subacromial decompression Surgeon Martin Blanco MD Associate Dean Of [employer] Ximena Gutierrez PA-C Anesthesia General and Regional ( interscalene block) Findings Somewhat lax soft tissues in general. Capsule was highly distensible. No gross instability identified. Concern for ligamentous laxity that might be a cause of micro instability and impingement. Will emphasize the importance postoperative physical therapy. Mid grade supraspinatus partial tear identified on the articular side low-grade on the bursal side. The subscapularis appeared intact. There was some frayed tissue around the biceps button stable and pristine in appearance. The articular cartilage and labrum were healthy. Evidence for subacromial impingement on the acromion. The Regeneten rotator tissue implant was ideal for rotator cuff repair covering the supraspinatus and infraspinatus. Multiple BHARTI soft tissue anchors and peek bone anchors utilized. Decompression performed arthroscopic bur. Description of Procedure Preoperative antibiotics were given. An interscalene block was administered in the preoperative area. The patient was bought brought to the operating room. A general anesthetic was administered. The patient was carefully positioned in the beach chair position. The head and neck were carefully positioned. The non operative extremity was also carefully positioned. The shoulder was prepped and draped in the usual sterile fashion. Examination was performed. Standard posterior and anterior arthroscopic portals were established. Inflow achieved with the arthroscopic pump using saline and epinephrine. The glenohumeral joint was carefully inspected. The articular side supraspinatus tear was identified and debrided. It was estimated at 20%. Attention was turned to the subacromial space. A complete bursectomy was performed. Was subacromial impingement and some hypertrophy of bursa. Low-grade bursal sided tearing was noted fraying at the supraspinatus. The marked articular tear was palpated and felt to be soft but otherwise intact. There was a small rent in the posterior infraspinatus area bursal side as well. The rotator cuff was lightly debrided. A modest acromioplasty was performed. The Regeneten implant was inserted. Medial BHARTI anchors were utilized followed by 2 peek bone anchors laterally. Care was taken to avoid the biceps tendon anteriorly which was previously marked. The sutures were tied arthroscopically. The arthroscopic instruments were removed. The wounds were closed with 3-0 Monocryl subcuticular suture and steri strips. There were no complications. A sling was applied and the patient brought to the recovery room. Physician pharmacy innovation assistant, Ximena Gutierrez PA-C, required for surgery; including p atient positioning, draping, arthroscopic camera operation, maintaining implant position, wound closure, and dressing and sling placement. Implants Regeneten large size collagen implant. Two peek bone anchors and BHARTI soft tissue anchors. Estimated Blood Loss 10 Pathology None sent Complications No immediate complications Condition Stable Disposition PACU [facility] Billing Surgery - Charge Forward: Surgery Billing
== END 2023-01-01 14:50 | disposition home or self-care (01) ==
PROVIDERS: PCP Family Medicine; Visit Provider Orthopaedic Surgery
PROC: (CPT 29805; principal; 2023-01-01 10:30)
DX: M75.112 Incomplete rotator cuff tear or rupture of left shoulder, not specified as traumatic (principal); M75.42 Impingement syndrome of left shoulder; M75.22 Bicipital tendinitis, left shoulder; G89.18 Other acute postprocedural pain; I10 Essential (primary) hypertension; G35 Multiple sclerosis; Z87.891 Personal history of nicotine dependence; F12.90 Cannabis use, unspecified, uncomplicated
CPT/HCPCS: 29827; 29826; 64415; 36415; 80048; 93005; A4565; A9270; C1713; J0171; J0690; J1100; J1170; J1885; J2250; J2405; J2704; J3010; J7120

== ENCOUNTER 2023-01-08 15:49 | Outpatient (RCR) | payer OTHER, SELFPAY ==
[2023-01-08 15:58] VITALS: BP_SYST 116
--- NOTE | 2023-01-08 16:57 | OPREHPOC ---
Outpatient Therapy Plan of Care This is a Multidisciplinary Plan of Care that may contain components documented by all disciplines (PT, OT, and ST.) PT Problem 1 PT Problem #1 Knowledge Deficit PT Goal 1 Goal Patient to demonstrate independence with HEP Target Visit 6 PT Problem 2 PT Problem #2 Pain PT Goal 1 Goal 1. Patient to report highest pain at 2/10 2. Patient to report ability to sleep with no disturbance due to L shoulder pain Target Visit 12 PT Problem 3 PT Problem #3 Impaired Range of Motion PT Goal 1 Goal Patient to demonstrate 160 deg of L shoulder flexion to improve ability to reach into cabinets for house hold tasks Target Visit 12 PT Problem 4 PT Problem #4 Impaired Strength PT Goal 1 Goal Patient to demonstrate 5/5 L shoulder strength to return to heavy house hold tasks at PLOF Target Visit 12 PT Problem 5 PT Problem #5 Impaired Functional Mobil PT Goal 1 Goal 1. Patient to report ability to dress with no limitations 2. Patient to report ability to wash her hair with no increase in L shoulder pain Target Visit 12
--- NOTE | 2023-01-08 16:57 | PTOPEVAL1 ---
Assessment and note entered by Aarti Mcnair DPT Evaluation Information Assessment Status Evaluation Diagnosis L shoulder pain Onset 01/01/23 Subjective Information Patient reports she underwent a L RTC repair and subacromial decompression on 01/01/23. She reports she is in a sling when out of the house now for protection. She reports she has difficulty with dressing, bathing, sleeping, and performing house hold tasks. She reports she has been doing pendulums, and elbow ROM. She reports she is off of work until 01/16/23. She returns to [place] on 01/16. Reported Pain Level Pain Score 5: Self Report Assessment PT Clinical Summary Patient is a 62 year old female who presents to PT with L shoulder pain s/p L RTC repair and subacromial decompression. Patient demonstrates increased L shoulder pain, decreased L shoulder ROM and decreased L shoulder strength limiting her ability to dress, bathe, sleep and perform house hold tasks. She would benefit from skilled PT to address impairments and return to PLOF. Plan of Care Interventions Electrical Stimulation,Hot Pack/Cold Pack,Manual Therapy,Mechanical Traction,Neuro Re-education, Patient/Caregiver Educati,Therapeutic Activities, Therapeutic Exercise PT Services Indicated Yes Treatment Frequency and 3x weekly for 6 visits and then 2x weekly for 6 Duration visits These treatments will address the objective and functional deficits as defined above. The patient will be advanced safely and appropriately in order for the patient to progress towards his/her prior level of function. Additional exercises will be introduced and as well as a comprehensive home exercise program upon discharge, if needed, ?to ensure carryover of functional gains achieved in the clinic. This treatment plan has been reviewed and agreement upon by the patient.
[2023-01-31 17:16] VITALS: BP_SYST 116
--- NOTE | 2023-01-31 17:30 | PTOPPROG ---
Assessment and note entered by Aarti Mcnair DPT Evaluation Information Assessment Status Progress - Pt Not Present Diagnosis L shoulder pain Onset 01/01/23 Subjective Information Patient reports pain comes and goes. She reports she has had some increased pain since starting light strengthening. She reports she has noticed that her ROM has improved but is discouraged that she is not further along at this point. Assessment PT Clinical Summary Mrs. Pires has been seen for 10 visits of skilled PT with good progress towards goals. Patient demonstrates improved active and L shoulder ROM with improved ability to work and complete house hold tasks. She continues to lack strength and present with pain. She would benefit from continued skilled PT to address remaining impairments and return to OF. Plan of Care Interventions Electrical Stimulation,Hot Pack/Cold Pack,Manual Therapy,Mechanical Traction,Neuro Re-education, Patient/Caregiver Educati,Therapeutic Activities, Therapeutic Exercise PT Services Indicated Yes Treatment Frequency and continue with current POC Duration These treatments will address the objective and functional deficits as defined above. The patient will be advanced safely and appropriately in order for the patient to progress towards his/her prior level of function. Additional exercises will be introduced and as well as a comprehensive home exercise program upon discharge, if needed, ?to ensure carryover of functional gains achieved in the clinic. This treatment plan has been reviewed and agreement upon by the patient.
[2023-02-07 15:16] VITALS: BP_SYST 140
--- NOTE | 2023-02-07 16:17 | OPREHPOC ---
Outpatient Therapy Plan of Care This is a Multidisciplinary Plan of Care that may contain components documented by all disciplines (PT, OT, and ST.) PT Problem 1 PT Problem #1 Knowledge Deficit PT Goal 1 Goal Patient to demonstrate independence with HEP Target Visit 6 Progress Met PT Problem 2 PT Problem #2 Pain PT Goal 1 Goal 1. Patient to report highest pain at 2/10 2. Patient to report ability to sleep with no disturbance due to L shoulder pain Target Visit 22 Comment progressing PT Problem 3 PT Problem #3 Impaired Range of Motion PT Goal 1 Goal Patient to demonstrate 160 deg of L shoulder flexion to improve ability to reach into cabinets for house hold tasks Target Visit 22 Comment progressing PT Problem 4 PT Problem #4 Impaired Strength PT Goal 1 Goal Patient to demonstrate 5/5 L shoulder strength to return to heavy house hold tasks at PLOF Target Visit 22 Comment progressing PT Problem 5 PT Problem #5 Impaired Functional Mobil PT Goal 1 Goal 1. Patient to report ability to dress with no limitations 2. Patient to report ability to wash her hair with no increase in L shoulder pain Target Visit 22 Comment progressing
--- NOTE | 2023-02-07 16:18 | PTOPREEVAL ---
Assessment and note entered by Aarti Mcnair DPT Evaluation Information Assessment Status Re-evaluation Diagnosis L shoulder pain Onset 01/01/23 Subjective Information Patient reports that she continues to have pain in the shoulder. She reports pain is starting ease. She reports she is awake a few times throughout the night due to discomfort. She reports ROM is improving. RTMD on 02/13/23 Reported Pain Level Pain Score 3: Self Report Assessment PT Clinical Summary Mrs. Pires has attended 12 visits of skilled PT with good progression towards goals. She demosntrates improved PROM and AROM of the L shoulder. She continues to report pain and difficulty sleeping due to discomfort. She returns to [place] on 02/13/23. She is compliant with HEP. She will benefit from continued skilled PT to address remaining impairments and return to PLOF. Plan of Care Interventions Electrical Stimulation,Hot Pack/Cold Pack,Manual Therapy,Mechanical Traction,Neuro Re-education, Patient/Caregiver Educati,Therapeutic Activities, Therapeutic Exercise PT Services Indicated Yes Treatment Frequency and continue 2x weekly for 10 visits Duration These treatments will address the objective and functional deficits as defined above. The patient will be advanced safely and appropriately in order for the patient to progress towards his/her prior level of function. Additional exercises will be introduced and as well as a comprehensive home exercise program upon discharge, if needed, ?to ensure carryover of functional gains achieved in the clinic. This treatment plan has been reviewed and agreement upon by the patient.
[2023-03-15 15:15] VITALS: BP_SYST 160
--- NOTE | 2023-03-15 17:02 | OPREHPOC ---
Outpatient Therapy Plan of Care This is a Multidisciplinary Plan of Care that may contain components documented by all disciplines (PT, OT, and ST.) PT Problem 1 PT Problem #1 Knowledge Deficit PT Goal 1 Goal Patient to demonstrate independence with HEP Target Visit 6 Progress Met PT Problem 2 PT Problem #2 Pain PT Goal 1 Goal 1. Patient to report highest pain at 2/10 2. Patient to report ability to sleep with no disturbance due to L shoulder pain Target Visit 30 Comment progressing PT Problem 3 PT Problem #3 Impaired Range of Motion PT Goal 1 Goal Patient to demonstrate 160 deg of L shoulder flexion to improve ability to reach into cabinets for house hold tasks Target Visit 30 Comment progressing PT Problem 4 PT Problem #4 Impaired Strength PT Goal 1 Goal Patient to demonstrate 5/5 L shoulder strength to return to heavy house hold tasks at PLOF Target Visit 30 Comment progressing PT Problem 5 PT Problem #5 Impaired Functional Mobil PT Goal 1 Goal 1. Patient to report ability to dress with no limitations 2. Patient to report ability to wash her hair with no increase in L shoulder pain Target Visit 22 Progress Met
--- NOTE | 2023-03-15 17:02 | PTOPREEVAL ---
Assessment and note entered by Aarti Mcnair DPT Evaluation Information Assessment Status Re-evaluation Diagnosis L shoulder pain Onset 01/01/23 Subjective Information Patient reports she has improved. She reports she has been able to return to fixing her hair and dressing at PLOF. Patient reports she has difficulty with reaching and returning to body due to a catching sensation. She also reports difficulty with reaching behind her for house hold tasks. She is still waking up occasionally due to pain. RTMD 03/27/23 Reported Pain Level Pain Score 2: Self Report Assessment PT Clinical Summary Mrs. Pires has attended 20 visits of skilled PT with good progression towards goals. She demonstrates 155 deg of L shoulder flexion but continues to have difficulty with L shoulder abduction. She has returned to dressing and bathing at PLOF but continues to have difficulty with reaching into cabinets and folding laundry. She would benefit from continued skilled PT to address remaining impairments and return to PLOF. Plan of Care Interventions Electrical Stimulation,Hot Pack/Cold Pack,Manual Therapy,Mechanical Traction,Neuro Re-education, Patient/Caregiver Educati,Therapeutic Activities, Therapeutic Exercise PT Services Indicated Yes Treatment Frequency and continue with skilled PT 2x weekly for 8 visits Duration These treatments will address the objective and functional deficits as defined above. The patient will be advanced safely and appropriately in order for the patient to progress towards his/her prior level of function. Additional exercises will be introduced and as well as a comprehensive home exercise program upon discharge, if needed, ?to ensure carryover of functional gains achieved in the clinic. This treatment plan has been reviewed and agreement upon by the patient.
--- NOTE | 2023-03-25 12:53 | PCPTNOTE ---
Patient cancelled session today due to weather.
[2023-04-01 15:15] VITALS: BP_SYST 160
--- NOTE | 2023-04-01 15:58 | OPREHPOC ---
Outpatient Therapy Plan of Care This is a Multidisciplinary Plan of Care that may contain components documented by all disciplines (PT, OT, and ST.) PT Problem 1 PT Problem #1 Knowledge Deficit PT Goal 1 Goal Patient to demonstrate independence with HEP Target Visit 6 Progress Met PT Problem 2 PT Problem #2 Pain PT Goal 1 Goal 1. Patient to report highest pain at 2/10 2. Patient to report ability to sleep with no disturbance due to L shoulder pain Target Visit 30 Progress Met Comment progressing PT Problem 3 PT Problem #3 Impaired Range of Motion PT Goal 1 Goal Patient to demonstrate 160 deg of L shoulder flexion to improve ability to reach into cabinets for house hold tasks Target Visit 30 Progress Met Comment progressing PT Problem 4 PT Problem #4 Impaired Strength PT Goal 1 Goal Patient to demonstrate 5/5 L shoulder strength to return to heavy house hold tasks at PLOF Target Visit 30 Progress Partially Met Comment not met for abduction PT Problem 5 PT Problem #5 Impaired Functional Mobil PT Goal 1 Goal 1. Patient to report ability to dress with no limitations 2. Patient to report ability to wash her hair with no increase in L shoulder pain Target Visit 22 Progress Met
--- NOTE | 2023-04-01 15:58 | PTOPDC ---
Assessment and note entered by Aarti Mcnair DPT Evaluation Information Assessment Status Discharge Diagnosis L shoulder pain Onset 01/01/23 Subjective Information She reports she is back to doing her normal daily activity. She saw the MD who reported that her anterior pain is to be expected with the healing process and that she is right on track and is able to be discharged from PT. Reported Pain Level Pain Score 1: Self Report Assessment PT Clinical Summary Mrs. Pires was seen for 25 visits of skilled PT following L RTC repair on 01/01/23. Patient met all goals during POC besides strength but she did make great progress towards goal. She has reported ability to dress, fix her hair and complete house hold tasks at [facility]. She is independent with HEP and is appropriate for DC at this time. Plan of Care PT Services Indicated No
== END 2023-04-01 16:53 | disposition home or self-care (01) ==
LOC: CHSPT 15:49
PROVIDERS: Visit Provider Orthopaedic Surgery
DX: Z48.89 Encounter for other specified surgical aftercare (principal)
CPT/HCPCS: 97014; 97110; 97150; 97161; 97530; G0283

== ENCOUNTER 2023-04-11 06:33 | Outpatient (CLI) | payer OTHER, SELFPAY ==
--- NOTE | ~2023-04-11 | MR_ITS ---
EXAMINATION: MR thoracic spine wo/w con DATE: 04/11/2023 08:18 INDICATION: Multiple sclerosis TECHNIQUE: Magnetic resonance imaging (MRI) of the thoracic spine was performed without and with 14 m L Multihance intravenous contrast. Sagittal localizer T1-weighted FSE of the cervicothoracic spine wa s obtained. Sequences included sagittal T2-weighted FSE, sagittal T2-weighted FS FSE, sagittal T1-jeferson ghted FSE and axial T1-weighted SE. Postcontrast sequences included axial T2-weighted FSE, sagittal T 1-weighted FS FSE, and axial T1-weighted FS SE. COMPARISON: Cervical spine MR dated 07/27/2015 and 05/11/2013 FINDINGS: Alignment is normal.Vertebral body heights are normal. T1 hyperintense hemangioma at T11. Normal jemma ow signal.Mild disc height loss with disc bulges resulting in mild central canal stenosis at T12-L1.T he more cephalad this do not extend beyond the endplate margins with no other central canal stenosis. There is facet osteoarthritis resulting in mild neural foraminal stenosis bilaterally atT1-T2 and on the right at T8-T9 through T10-T11. There are T2 hyperintense lesions at T3, T5 through T6, T9 and m ore conspicuously at T7. And T3 lesion appears to been present at the time of the prior studies. Priyanka ining lesions are not included on the field of imaging of the prior studies. None of the lesions demo nstrate enhancement. The conus terminates at L1. IMPRESSION: 1. Four T2 hyperintense lesions in the thoracic spinal cord which are without expansion or enhancemen t consistent with known history of multiple sclerosis. 2. Minimal to mild thoracic spondylosis. Reviewed, dictated and finalized at location A. [employer] IMPRESSION: 1. Four T2 hyperintense lesions in the thoracic spinal cord which are without e xpansion or enhancement consistent with known history of multiple sclerosis. 2. Minimal to mild thoracic spondylosis.
--- NOTE | ~2023-04-11 | MR_ITS ---
EXAMINATION: MR brain/brain stem wo/w con DATE: 04/11/2023 08:18 INDICATION: Multiple sclerosis TECHNIQUE: Magnetic resonance imaging (MRI) of the brain and brainstem was performed without and with 15 mL Multihance intravenous contrast. Sequences included sagittal and axial T1-weighted FLAIR, axia l T1-weighted FSE, axial diffusion-weighted FS EPI, sagittal T2-weighted FLAIR, axial 3D SWAN, axial T2-weighted FLAIR Propeller, and axial T2-weighted Propeller. Postcontrast sequences included axial, coronal, and sagittal T1-weighted FSE. Apparent diffusion coefficient (ADC) maps were created. COMPARISON: 07/27/2015 FINDINGS: There are no areas of restricted diffusion to suggest acute infarction. No intracranial hemorrhage or abnormal intracranial mass lesion. There are approximately 28 total lesions of increased T2-weighted signal intensity in the brain. Of these lesions, approximately 7 are periventricular, 21 are juxtaco rtical, and 0 are infratentorial. 0 of the lesions enhance. Only one of the juxtacortical lesions in the right temporal lobe is new since the prior study. There are no intraparenchymal signal abnormalit ies seen on the other pulse sequences. The ventricles are symmetric and normal in size. There are no abnormal extra-axial fluid collections. Flow voids are seen in the cerebral arteries on the T2-weight ed sequences consistent with their expected patency. Visualized orbits and soft tissues are unremarka ble. There are no areas of abnormal enhancement on the post contrast images. IMPRESSION: 1. No significant interval change since 2015 in scattered white matter T2 signal hyperintensities wit h only one new out of 28 total lesions which are consistent with given history of multiple sclerosis. Reviewed, dictated and finalized at location A. IRATORY SCIENTIST IMPRESSION: 1. No significant interval change since 2015 in scattered white matter T2 signa l hyperintensities with only one new out of 28 total lesions which are consiste nt with given history of multiple sclerosis.
--- NOTE | ~2023-04-11 | MR_ITS ---
EXAMINATION: MR cervical spine wo/w con DATE: 04/11/2023 08:18 INDICATION: Multiple sclerosis TECHNIQUE: Magnetic resonance imaging (MRI) of the cervical spine was performed without and with 14 m L Multihance intravenous contrast. Sequences included sagittal T2-weighted FSE, sagittal T2-weighted FS FSE, sagittal T1-weighted FSE, axial T2-weighted FSE, and axial T1-weighted SE. Postcontrast seque nces included sagittal T1-weighted FS FSE, and axial T1-weighted FS SE. COMPARISON: 07/27/2015 and 05/11/2013 FINDINGS: Bone alignment is normal. Vertebral body heights are normal. Bone marrow signal intensity is normal . Mild disc height loss with disc bulges resulting in mild central canal stenosis at C5-C6 and C6-C7. At C5-C6 the disc bulge and C5 inferior endplate osteophyte mildly indents the left ventral surface of the cord. There is mild to moderate left-sided neural foraminal stenosis at this level. There is m ild neural foraminal stenosis on the right at this level and bilaterally at C6-C7. Again seen are T2 hyperintense cord lesions in similar distribution as on the study from 2013. These appear more conspi cuous than on the more recent study from 2015 but still less conspicuous than on the initial study fr om 2013. The lesion posterior to C2 and C3 does appear to demonstrate some minimal expansion of the c ord which is new since the more recent study but decreased since the study from 2013. Additional lesi ons extend from C4-C5 and at C5-C6 remain without the mild expansion which was present at 2013. There are no enhancing lesions. IMPRESSION: 1. No change in 3 regions of increased and T2 hyperintensity in the cord consistent with multiple scl erosis. These are slightly increased in conspicuity and the most cephalad with new minimal cord expan kb when compared with study from 2015 but still with less T2 signal and with less expansion than on the earlier study from 2013. No enhancing cord lesions. 2. Mild cervical spondylosis. Reviewed, dictated and finalized at location A. HEALTH CLINICIAN IMPRESSION: 1. No change in 3 regions of increased and T2 hyperintensity in the cord consis tent with multiple sclerosis. These are slightly increased in conspicuity and t he most cephalad with new minimal cord expansion when compared with study from 2016 but still with less T2 signal and with less expansion than on the earlier study from 2013. No enhancing cord lesions. 2. Mild cervical spondylosis.
== END 2023-04-11 06:34 | disposition home or self-care (01) ==
PROVIDERS: PCP Family Medicine
DX: G35 Multiple sclerosis (principal); M43.04 Spondylolysis, thoracic region; M43.02 Spondylolysis, cervical region
CPT/HCPCS: 70553; 72156; 72157; A9577

== ENCOUNTER 2023-11-26 07:52 | Outpatient (CLI) | payer OTHER, SELFPAY ==
[2023-12-19 13:18] VITALS: BMI 29.7
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
== END 2023-11-27 10:29 | disposition home or self-care (01) ==
LOC: ANHCSM 07:53
PROVIDERS: PCP Family Medicine; Visit Provider Family Medicine
DX: G47.30 Sleep apnea, unspecified (principal); G47.33 Obstructive sleep apnea (adult) (pediatric)
CPT/HCPCS: 95800

== ENCOUNTER 2024-01-02 15:49 | Outpatient (CLI) | payer OTHER, SELFPAY ==
--- NOTE | 2024-01-02 15:59 | ECHO_ITS ---
Patient Info Name: Luz Pires Age: 63 years : 1960 Gender: Female HR: 70 bpm BP: 182 / 101 mmHg Heart Rhythm: Sinus Arrhythmia Technical Quality: Good Exam Date: 01/02/2024 3:47 PM Exam Location: Echo Lab Patient Status: Outpatient Admit Date: 01/02/2024 Staff Ordering Physician: Russel Alves MD Parts Consultant: Leslye Wilson RDCS Attending Provider: Russel Alves MD Referring Physician: Joselyn OG; Exam Type: CA echo doppler color flow Study Info Indications - sleep apnea Complete two-dimensional, color flow and Doppler transthoracic echocardiogram is performed. Summary 1. Complete two-dimensional, color flow and Doppler transthoracic echocardiogram is performed. 2. Left ventricular chamber dimension is normal. 3. Left ventricular systolic function is normal, estimated at 60-65%. 4. The left ventricular diastolic function is abnormal. 5. E/e' 15 is elevated. 6. There is trace mitral valve regurgitation. 7. No pulmonary hypertension, estimated pulmonary arterial systolic pressure is 15 mmHg. Left Ventricle E/e' 15 is elevated. Left ventricular chamber dimension is normal. Left ventricular systolic function is normal, estimated at 60-65%. The left ventricular diastolic function is abnormal. Right Ventricle Right ventricular systolic function is normal and with normal TAPSE 3.0 cm. Right ventricular chamber dimension is normal. Left Atria Left atrial chamber dimension is normal. Right Atria Right atrial chamber dimension is normal. Aortic Valve The aortic valve is trileaflet. There is no aortic valve stenosis. There is no aortic valve regurgitation. Pulmonic Valve There is no pulmonic regurgitation. Mitral Valve There is no mitral valve stenosis. There is trace mitral valve regurgitation. Tricuspid Valve There is no tricuspid valve regurgitation. No pulmonary hypertension, estimated pulmonary arterial systolic pressure is 15 mmHg. Pericardium/Pleural There is no pericardial effusion. Inferior Vena Cava Normal inferior vena cava with >50% collapse upon inspiration consistent with normal right atrial pressure, 5 mmHg. Aorta The aortic root size at the sinus of Valsalva is normal. Left Ventricular Outflow Tract Name Value Normal LVOT 2D LVOT Diameter 1.9 cm LVOT Doppler LVOT Peak Velocity 93 cm/s LVOT Peak Gradient 3 mmHg LVOT Mean Gradient 2 mmHg LVOT VTI 23 cm LVOT VTI/AV VTI Ratio 0.9 LVOT Stroke Volume 68 ml Mitral Valve Name Value Normal MV Doppler MV Decel Will 444 cm/s2 MV PHT 69 ms MV Area (PHT) 3.2 cm2 4.0-5.0 MV Diastolic Function MV E Peak Velocity 106 cm/s MV A Peak Velocity 62 cm/s MV E/A 1.7 MV Decel Time 239 ms Tricuspid Valve Name Value Normal TV Regurgitation Doppler TR Peak Velocity 162 cm/s TR Peak Gradient 10 mmHg Estimated PAP/RSVP RA Pressure 5 mmHg <=5 PA Systolic Pressure 15 mmHg <36 RV Systolic Pressure 15 mmHg <36 Aortic Valve Name Value Normal AV Doppler AV Peak Velocity 108 cm/s AV Peak Gradient 5 mmHg AV Mean Gradient 3 mmHg AV VTI 25 cm AV Area (Cont Eq VTI) 2.7 cm2 >=3.0 AV Area (Cont Eq Octavio) 2.6 cm2 AV V1/V2 Ratio 0.86 AV Regurgitation 2D LVOT Area 3.0 cm2 Ventricles Name Value Normal LV Dimensions 2D/MM IVS Diastolic Thickness (2D) 1.1 cm 0.6-1.0 LVID Diastole (2D) 4.5 cm 3.8-5.2 LVIW Diastolic Thickness (2D) 1.1 cm 0.6-0.9 LVID Systole (2D) 2.9 cm 2.2-3.5 LVOT Diameter 1.9 cm LV Mass (2D Cubed) 167.71 g 67.00-162.00 Relative Wall Thickness (2D) 0.48 LV Fractional Shortening/Ejection Fraction 2D/MM LV Fractional Shortening (2D) 36 % 27-45 LV EF (2D Teicholz) 66 % 54-74 LV Diastolic Volume (4C MOD) 75 ml LV EF (4C MOD) 61 % LV Diastolic Volume (2C MOD) 82 ml LV EF (2C MOD) 73 % LV Diastolic Volume (BP MOD) 81 ml 46-106 LV Systolic Volume (BP MOD) 26 ml 14-42 LV EF (BP MOD) 68 % 54-74 LV Diastolic Length (4C) 7.6 cm LV Systolic Length (4C) 5.4 cm LV Stroke Volume (4C MOD) 46 ml Atria Name Value Normal LA Dimensions LA Volume (4C A-L) 13 ml LA Volume (BP A-L) 21 ml RA Dimensions RA Area (4C) 6.9 cm2 <=18.0 Report Signatures
== END 2024-01-02 15:50 | disposition home or self-care (01) ==
PROVIDERS: PCP Family Medicine; Visit Provider Family Medicine
DX: G47.31 Primary central sleep apnea (principal); I50.30 Unspecified diastolic (congestive) heart failure
CPT/HCPCS: 93306

== ENCOUNTER 2024-01-07 15:10 | Outpatient (RCR) | payer OTHER, SELFPAY ==
--- NOTE | 2024-01-07 16:00 | OPREHPOC ---
Outpatient Therapy Plan of Care This is a Multidisciplinary Plan of Care that may contain components documented by all disciplines (PT, OT, and ST.) PT Problem 1 PT Problem #1 Knowledge Deficit PT Goal 1 Goal / Goal Update The patient will be independent in a HEP for the home Jyotsna and VOR exercises. Target Visit 4 PT Problem 2 PT Problem #2 Impaired Vestibular Syste PT Goal 1 Goal / Goal Update The patient will demonstrate negative Genia Hallpike tests for nystagmus and vertigo. Target Visit 8 PT Problem 3 PT Problem #3 Impaired Functional Mobil PT Goal 1 Goal / Goal Update 1. The patient will demonstrate less than 10% disability per the Dizziness Handicap Assessment. 2. The patient will report ability to perform all daily activities without vertigo. Target Visit 8
--- NOTE | 2024-01-07 16:01 | PTOPEVAL1 ---
Assessment and note entered by Lindy Isaacs, PT Evaluation Information Assessment Status Evaluation ICD-10 Condition Codes (PT) BPPV H81.12 Onset 12/23/23 Subjective Information Luz Pires reports she has had dizziness intermittently for years and she has been able to correct it with the home Jyotsna maneuver she was taught by a chiropractor. She reports about a month ago she had been feeling dizzy through the day and that night she let her head hang back off the edge of the bed to stretch. When she sat up and then laid down, she had the worst vertigo and nystagmus she has ever had. She was tested by her MS doctor and was told it was just her inner ear. She denies inner ear infections or sinus issues or illness prior to the onset of symptoms. She is noting increased symptoms when she turns her head to the left and when she reaches with her left arm . Reported Pain Level Pain Score 0: Self Report Assessment PT Clinical Summary Luz Pires presents with left sided positional vertigo that started about a month ago. She has a history of right sided positional vertigo and multiple sclerosis. She is demonstrating vertigo with left > right Genai Hallpike testing as well as latency with eye tracking from left to right. She did not demonstrate any nystagmus today. She will benefit from skilled PT for canalith repositioning and vestibular rehab. Plan of Care Interventions Patient/Caregiver Educati,Other Other Interventions CR and vestibular rehab PT Services Indicated Yes Treatment Frequency and 2 times a week for 8 visits Duration These treatments will address the objective and functional deficits as defined above. The patient will be advanced safely and appropriately in order for the patient to progress towards his/her prior level of function. Additional exercises will be introduced and as well as a comprehensive home exercise program upon discharge, if needed, ?to ensure carryover of functional gains achieved in the clinic. This treatment plan has been reviewed and agreement upon by the patient.
--- NOTE | 2024-02-18 15:26 | PCPTNOTE ---
02/18/24: The patient was last seen on 01/09/24 and vertigo was resolved. She was discharged to a home exercise program as needed. -Lindy Isaacs, PT
== END 2024-01-09 15:15 | disposition home or self-care (01) ==
LOC: CHSPT 15:10
DX: H81.12 Benign paroxysmal vertigo, left ear (principal)
CPT/HCPCS: 97110; 97161

== ENCOUNTER 2024-01-18 19:53 | Outpatient (CLI) | payer OTHER, SELFPAY ==
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
[2024-02-13 18:43] VITALS: BMI 29.7
== END 2024-01-19 06:49 | disposition home or self-care (01) ==
LOC: CHSCSM 19:56
PROVIDERS: PCP Family Medicine; Visit Provider Family Medicine
DX: G47.31 Primary central sleep apnea (principal); G47.33 Obstructive sleep apnea (adult) (pediatric)
CPT/HCPCS: 95811

== ENCOUNTER 2025-01-11 18:54 | Emergency (ER) | payer OTHER, SELFPAY ==
[2025-01-11 18:55] VITALS: BP 199/84; PULSE 69; RESP 20; TEMP 36.6; O2SAT 97
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
--- NOTE | 2025-01-11 19:01 | PC.NURSE ---
PT REPORT RECEIVED FROM CARMELA LOCO. ERP DR SNOWDEN AT BEDSIDE AT THIS TIME.
[2025-01-11] MEDS: LORazepam (*CRX) 1 MG TABLET PO (19:17)
--- NOTE | 2025-01-11 19:18 | PC.NURSE ---
PT MEDICATED PER ORDER, SEE MAR.
--- NOTE | 2025-01-11 19:50 | PC.NURSE ---
PT MEDICATED PER ORDER, SEE MAR. BP ELEVATED. PT REPORTS SHE TAKES HER HOME BP MEDS AT NIGHT. STATES THE BP CUFF IS TOO TIGHT DURING READINGS. BP READINGS CHECKED IN BILAT ARMS PRIOR TO GROUND TRANSPORTATION OPERATOR.
[2025-01-11 20:06] VITALS: BP 176/91; PULSE 57; RESP 18; O2SAT 97
== END 2025-01-11 20:10 | disposition home or self-care (01) ==
PROVIDERS: Emergency Provider Emergency Medicine; PCP Family Medicine
DX: H57.12 Ocular pain, left eye (principal); F41.9 Anxiety disorder, unspecified; I10 Essential (primary) hypertension; G35.D Multiple sclerosis, unspecified; F17.210 Nicotine dependence, cigarettes, uncomplicated
CPT/HCPCS: 99283; A9270

== ENCOUNTER 2025-02-23 17:29 | Emergency (ER) | payer OTHER, SELFPAY ==
--- NOTE | ~2025-02-23 | XR_ITS ---
XR wrist RT min 3V 02/23/2025 17:47 INDICATION: Right wrist pain PROCEDURE: 4 views right wrist COMPARISON: No prior studies for comparison. FINDINGS: Fracture, dislocation or subluxation is not identified. The soft tissues appear within normal limits. No foreign bodies are identified. IMPRESSION: 1: NO ACUTE BONE OR JOINT ABNORMALITY IDENTIFIED. Reviewed, dictated and finalized at location [facility]. [facility]
[2025-02-23 17:38] VITALS: BP 180/83; PULSE 71; RESP 18; TEMP 36.5; O2SAT 98
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
== END 2025-02-23 18:42 | disposition home or self-care (01) ==
PROVIDERS: Emergency Provider Nurse Practitioner; PCP Family Medicine
DX: S63.501A Unspecified sprain of right wrist, initial encounter (principal); W01.0XXA Fall on same level from slipping, tripping and stumbling without subsequent striking against object, initial encounter; I10 Essential (primary) hypertension; G35.D Multiple sclerosis, unspecified; F12.90 Cannabis use, unspecified, uncomplicated; Z87.891 Personal history of nicotine dependence
CPT/HCPCS: 73110; 99213; G0463